=== PATIENT | female | born 1995 | race African-American/Black ===

== ENCOUNTER 2017-02-01 16:46 | Emergency (ER) | payer BC, OTHER ==
[~2017-02-01] VITALS: Ht 167.6 cm; Wt 49.9 kg
[~2017-02-01 16:46] MED LIST: GILDESS FE 1-21 EACH; NORCO 5-325 TA1 EACH PO; ONDANSETRON HCL4 M2 PO
[2017-02-01 18:22] LABS: HEMATOCRIT 40.6 % (37.0-47.0); HEMOGLOBIN 14.2 gm/dL (12.0-15.0); MCH 33.6 pg (26.0-34.0); MCHC 34.9 g/dL (28.0-37.0); MCV 96.4 fL (80.0-100.0); PLATELET COUNT 200 thou/uL (150-400); RBC 4.22 mil/uL (4.20-5.00); RDW 13.6 % (10.5-14.5); WBC 10.5 thou/uL (4.0-11.0)
[2017-02-01 18:25] LABS: MANUAL DIFF YES
[2017-02-01 18:33] LABS: CALCIUM 8.9 mg/dL (8.5-10.1); CREATININE 0.9 mg/dL (0.6-1.0); POTASSIUM 4.1 mmol/L (3.5-5.1)
[2017-02-01 18:34] LABS: URINE BILIRUBIN NEGATIVE (Negative); URINE BLOOD 1+ (Negative); URINE COLOR YELLOW; URINE GLUCOSE-RANDOM* NEGATIVE (Negative); URINE KETONES 1+ (Negative); URINE NITRITE POSITIVE (Negative); URINE PROTEIN (DIPSTICK) 1+ (Negative); URINE SPECIFIC GRAVITY 1.025 (1.003-1.035); URINE UROBILINOGEN 0.2 E.U./dl (0.2-1.0)
[2017-02-01 18:38] LABS: ALBUMIN 3.9 g/dL (3.4-5.0); TOTAL BILIRUBIN 0.9 mg/dL (<0.1-1.0); TOTAL PROTEIN 7.8 g/dL (6.4-8.2)
[2017-02-01 18:43] LABS: SQUAMOUS 4-10 Moderate /LPF (0-3)
[2017-02-01 18:44] LABS: BACTERIA >30 Many /HPF (None Seen); CASTS None Seen /LPF (None Seen); CRYSTALS None Seen /LPF (None Seen); URINE RBC 3-10 Few /HPF (0-2); URINE WBC >25 Many /HPF (0-5)
[2017-02-01 19:03] LABS: ABSOLUTE NEUTROPHILS 9.5 thou/uL (1.4-8.2); TOTAL CELL COUNT 100
[2017-02-01] MEDS ORDERED: KEFLEX500 MG PO (19:15)
[2017-02-01] MEDS ORDERED: DOXYCYCLINE 10100 MG PO (19:15)
[2017-02-01] MEDS ORDERED: FLAGYL500 MG PO (19:15)
[2017-02-01] MEDS ORDERED: MOBIC15 MG PO (19:46)
[2017-02-01] MEDS ORDERED: ONDANSETRON HCL4 M2 PO (19:54)
[2017-02-01 20:30] VITALS: BP 123/79
== END 2017-02-01 20:31 | disposition home or self-care (01) ==
LOC: ER 16:46
PROVIDERS: Physician Assistant
DX: N73.9 Female pelvic inflammatory disease, unspecified (principal); A59.9 Trichomoniasis, unspecified; N39.0 Urinary tract infection, site not specified

== ENCOUNTER 2017-09-15 14:16 | Emergency (ER) | payer OTHER, BC ==
[~2017-09-15] VITALS: Ht 167.6 cm; Wt 49.9 kg
[~2017-09-15 14:16] MED LIST changes: +DOXYCYCLINE 10100 MG PO; +FLAGYL500 MG PO; +KEFLEX500 MG PO; +MOBIC15 MG PO
[2017-09-15 16:35] LABS: ABSOLUTE NEUTROPHILS 6.4 thou/uL (1.4-8.2); BASOPHILS 0.2 % (0.0-2.0); EOSINOPHILS 0.1 % (0.0-3.0); HEMATOCRIT 39.3 % (37.0-47.0); HEMOGLOBIN 13.7 gm/dL (12.0-15.0); LYMPHOCYTES 5.5 % (24.0-44.0); MCH 33.6 pg (26.0-34.0); MONOCYTES 4.2 % (1.0-8.0); PLATELET COUNT 185 thou/uL (150-400); RBC 4.09 mil/uL (4.20-5.00); RDW 12.8 % (10.5-14.5); WBC 7.1 thou/uL (4.0-11.0)
[2017-09-15 16:42] LABS: CALCIUM 9.2 mg/dL (8.5-10.1); CREATININE 0.9 mg/dL (0.6-1.0); POTASSIUM 3.7 mmol/L (3.5-5.1)
[2017-09-15 16:48] LABS: TOTAL BILIRUBIN 0.7 mg/dL (<0.1-1.0); TOTAL PROTEIN 7.6 g/dL (6.4-8.2)
[2017-09-15] MEDS ORDERED: ONDANSETRON HCL4 M2 PO (17:05)
[2017-09-15 17:16] LABS: URINE BILIRUBIN NEGATIVE (Negative); URINE BLOOD NEGATIVE (Negative); URINE CLARITY CLEAR; URINE COLOR YELLOW; URINE GLUCOSE-RANDOM* NEGATIVE (Negative); URINE KETONES 2+ (Negative); URINE LEUKOCYTES NEGATIVE (Negative); URINE NITRITE NEGATIVE (Negative); URINE PROTEIN (DIPSTICK) NEGATIVE (Negative); URINE SPECIFIC GRAVITY 1.025 (1.005-1.035); URINE UROBILINOGEN 0.2 E.U./dl (0.2-1.0)
== END 2017-09-15 17:32 | disposition home or self-care (01) ==
LOC: ER 14:16
PROVIDERS: Physician Assistant
DX: R11.2 Nausea with vomiting, unspecified (principal); R10.30 Lower abdominal pain, unspecified; F41.9 Anxiety disorder, unspecified; F32.9 Major depressive disorder, single episode, unspecified; F17.210 Nicotine dependence, cigarettes, uncomplicated

== ENCOUNTER 2018-04-12 19:23 | Emergency (ER) | payer OTHER, BC ==
[~2018-04-12] VITALS: Ht 167.6 cm; Wt 46.7 kg
[2018-04-12] MEDS ORDERED: PRENATAL PO (19:43)
[2018-04-12 21:28] VITALS: BP 110/72
== END 2018-04-12 21:37 | disposition home or self-care (01) ==
LOC: ER 19:23
DX: O26.891 Other specified pregnancy related conditions, first trimester (principal); Z3A.01 Less than 8 weeks gestation of pregnancy; R10.9 Unspecified abdominal pain; R10.2 Pelvic and perineal pain

== ENCOUNTER 2019-02-14 03:45 | Emergency (ER) | payer OTHER ==
[~2019-02-14] VITALS: Ht 167.6 cm; Wt 48.5 kg
[~2019-02-14 03:45] MED LIST changes: +PRENATAL PO
[2019-02-14 03:48] VITALS: BP 109/74
[2019-02-14 04:14] LABS: URINE BILIRUBIN NEGATIVE (Negative); URINE BLOOD 2+ (Negative); URINE CLARITY CLEAR; URINE COLOR YELLOW; URINE GLUCOSE-RANDOM* NEGATIVE (Negative); URINE KETONES NEGATIVE (Negative); URINE NITRITE-REFLEX NEGATIVE (Negative); URINE PROTEIN (DIPSTICK) NEGATIVE (Negative); URINE SPECIFIC GRAVITY 1.025 (1.005-1.035); URINE UROBILINOGEN 0.2 E.U./dl (0.2-1.0)
[2019-02-14 04:21] LABS: URINE LEUKOCYTES-REFLEX 3+ (Negative)
[2019-02-14 04:25] LABS: CASTS None Seen /LPF (None Seen); MUCUS 0-3 Light strn/LPF (None Seen); SQUAMOUS 4-10 Moderate /LPF (0-3); URINE RBC >20 Many /HPF (0-2); URINE WBC-REFLEX >25 Many /HPF (0-5)
[2019-02-14 04:26] LABS: CRYSTALS None Seen /LPF (None Seen); TRANSITIONAL EPITHEL CELL 0-3 Few /LPF (None Seen)
[2019-02-14 04:34] LABS: ABSOLUTE NEUTROPHILS 2.6 thou/uL (1.4-8.2); BASOPHILS 0.4 % (0.0-2.0); EOSINOPHILS 1.3 % (0.0-3.0); HEMATOCRIT 38.5 % (37.0-47.0); HEMOGLOBIN 13.3 gm/dL (12.0-15.0); LYMPHOCYTES 38.6 % (24.0-44.0); MCH 34.3 pg (26.0-34.0); MCHC 34.5 g/dL (28.0-37.0); MCV 99.4 fL (80.0-100.0); MONOCYTES 11.4 % (1.0-8.0); PLATELET COUNT 206 thou/uL (150-400); POLYS 48.3 % (36.0-66.0); RBC 3.87 mil/uL (4.20-5.00); RDW 12.9 % (10.5-14.5); WBC 5.3 thou/uL (4.0-11.0)
[2019-02-14 04:41] LABS: CREATININE 0.8 mg/dL (0.6-1.0); POTASSIUM 3.4 mmol/L (3.5-5.1)
[2019-02-14] MEDS ORDERED: FLAGYL500 M1 PO (04:57)
== END 2019-02-14 05:06 | disposition home or self-care (01) ==
LOC: ER 03:45
PROVIDERS: Emergency Medicine
DX: A59.9 Trichomoniasis, unspecified (principal)